=== PATIENT | female | born 1950 | race Caucasian/White ===

== ENCOUNTER → 2016-10-30 | Day surgery (SDC) | payer MEDICARE ==
[~2016-10-30] MED LIST: BUPIVACAINE HCL PF 0.75% 30 ML VIAL ONE; CLINDAMYCIN PHOS 600 MG/4 ML VIAL ONE; EPINEPHrine HCL (1:1000) 30 MG/30 ML VIAL ONE; LACTATED RINGER'S 1000 ML INJ 1,000 ML ONE; LIDOCAINE 1.5%/EPINEPHrine 1:200,000 PF SOLN 30 ML AMP ONE; MIDAZOLAM HCL 5 MG/ML VIAL (1 ML) ONE; PROPOFOL 200 MG/20 ML AMP IV ONE; SODIUM CHLORIDE 0.9% 100 ML ADDBAG IV ONE
--- NOTE | 2016-10-30 20:36 | MP ---
cc: MACARIO REED DATE OF SURGERY 10/30/2015 PREOPERATIVE DIAGNOSIS 1. Left shoulder massive rotator cuff tendon tear involving the subscapularis, supraspinatus and infraspinatus tendons 2. Left shoulder impingement syndrome 3. Left shoulder biceps tendon tearing with subluxation. POSTOPERATIVE DIAGNOSIS 1. Left shoulder massive rotator cuff tendon tear involving the subscapularis, supraspinatus and infraspinatus tendons 2. Left shoulder impingement syndrome 3. Left shoulder biceps tendon tearing with subluxation. PROCEDURE 1. Left shoulder arthroscopic rotator cuff repair involving supraspinatus and infraspinatus tendons 2. Left shoulder arthroscopic subacromial decompression left shoulder open subscapularis rotator cuff tendon repair 2. Left shoulder open biceps tenodesis. SURGEON Dr. Ankit Reed DOCTORATE OF CHIROPRACTIC NICK Katz ANESTHESIA General with interscalene block. ESTIMATED BLOOD LOSS 50 mL COMPLICATIONS None. IMPLANTS USED Arthrex JUSTIFICATION FOR PROCEDURE This patient is a 66-year old female who has history of severe left shoulder pain and weakness, failure of conservative treatment. Clinical exam as well as MRI confirmed the above-named findings. The patient was counseled as to risks, benefits and alternatives to the above-named proposed surgical procedure. She did wish to proceed with surgery. PROCEDURE IN DETAIL A written consent was obtained. The patient identified by name and taken to the operating room, placed supine on operating table. General anesthesia was administered as well as 600 mg of IV clindamycin. She does have PENICILLIN ALLERGY. The patient was carefully turned to her right lateral decubitus position. A lateral arm roll was placed. All bony prominences and pressure points were well padded. The patient's neck was carefully monitored and kept neutral. An arthroscopic arm brown was gently applied to left upper extremity with 7 pounds traction placed. The left shoulder was prepped and draped using isopropyl alcohol, Hibiclens solution and DuraPrep solution. A standard posterior and anterior glenohumeral arthroscopic portal was established. Glenohumeral joint revealed labral tearing with anterior, superior, posterior biceps origin. An arthroscopic shaver was introduced in the anterior portal. An extensive debridement of the labrum was performed. There was evidence of biceps tearing with complete dislocation and subluxation of the bicipital groove. An initial biceps tenotomy was performed. There was evidence of massive rotator cuff tear. Attention was turned to the subacromial space. There was evidence of a massive rotator cuff tear involving the subscapularis, supraspinatus and infraspinatus tendons. There was significant retraction to level the glenoid. An arthroscopic portal was introduced into the lateral portal. A subacromial decompression was performed. The shaver was used to perform extensive bursectomy including subdeltoid recess. The bur was used to perform an acromioplasty and the cautery device was used to release impinging portions of the coracoacromial ligament. The bur was used to decorticate the greater tuberosity of the rotator cuff in preparation for rotator cuff tendon repair. At this point, an Arthrex 5.5 mm bio corkscrew anchor was inserted along the posteromedial portions of the greater tuberosity. The Arthrex scorpion device was used to shuttle #2 FiberWire suture in a horizontal mattress pattern through the posterior and midportions of the tendon. Arthroscopic sliding knots were used for rotator cuff repair. The tear was mobilized prior to repair. An Arthrex scorpion device was used to shuttle number #2 fiber link sutures through the far posterior portions of the tendon which was also more mobile than the anterior portion. Two of these sutures along with two sutures from the medial row corkscrew were placed through the eyelet of a 4.75 mm bio-swivel lock anchor. That anchor was inserted into the mid lateral portion of the tuberosity after appropriate reduction of the tendon. The arthroscopic portals were closed with 3-0 Prolene suture. Attention was turned to the anterior aspect of the shoulder where a separate longitudinal incision was made over the anterior shoulder. The deltopectoral interval was explored. The cephalic vein was identified, protected and retracted in a lateral direction. The conjoined tendon was retracted in a medial direction to allow exposure of the left tuberosity. There was avulsion of the subscapularis tendon and the torn dislocated biceps tendon was identified within the bicipital groove. A #2 FiberWire suture was placed in a whipstitch pattern through the tendon and sutures from that tendon were placed through the eyelet of a 7 mm x 10 __ screw. A gliding pilot instructor hole was created within the intertubercular groove and a bio-tenodesis of the long head biceps tendon was performed. There was good purchase and fixation. The suture were tied on top of the screw for backup fixation. At this point, a #2 fiber tape suture was placed through the torn subscapularis tendon in a horizontal mattress pattern. Those sutures were placed through the eyelet of a 4.75 mm bio-swivel lock suture. The swivel lock suture was then inserted into the lesser tuberosity after a gliding pilot instructor hole was created with good purchase and fixation. This was thoroughly irrigated with sterile saline solution. The subcutaneous layer was closed with 3-0 Vicryl suture. The skin was closed with 3-0 Prolene suture. The patient tolerated procedure well. No intraoperative complications noted. The patient was placed in a sling and swath immobilizer with an abduction pillow to protect her shoulder and arm. Lars Pedersen, physician dairy and food laboratory assistant certified, was present during the entire procedure to include patient positioning and the procedure itself. The medical necessity of a physician dairy and food laboratory assistant was indicated in this case due to the complexity of the procedure. He assisted with appropriate manipulation of the arm and also manipulation of the camera for purposes of rotator cuff tendon repair and passage of sutures as well as implantation of suture anchors arthroscopically. He also assisted with the open repair to include retraction of muscle tendon, bone and neurovascular structure. He assisted with reduction of the tendon and sutures as well as surgical repair and implantation of suture anchors. MD WILLIAN Babb/ /3:30 PM /8:10 PM
== END | disposition home or self-care (01) ==
LOC: ESDC 10:55
PROVIDERS: ATTEND Orthopaedic Surgery Sports Medicine
DX: M75.122 Complete rotator cuff tear or rupture of left shoulder, not specified as traumatic (principal); M75.42 Impingement syndrome of left shoulder; S46.212A Strain of muscle, fascia and tendon of other parts of biceps, left arm, initial encounter
CPT/HCPCS: 01630; 01716; 01991; 23430; 29826; 29827; 64417; C1713; J0171; J2250; J7120